=== PATIENT | male | born 1960 | race Caucasian/White ===

== ENCOUNTER → 2017-11-22 | Outpatient (CLI) | payer BC ==
[~2017-11-22] MED LIST: ASPI-516 CHEW; ASPIRIN EC 81 MG TABEC ONE; BACL20TA PO; DIGE1CAP2 PO; DULC100C PO; ECASA81 PO; HYDR-3366 PO; HYDR-3583 PO; KETOROLAC TROMETHAMINE 30 MG/ML (IVP) VIAL ONE; MAGN100T2 PO; MELO15TA20 PO; MULT-315 PO; WALKER WHEELS/F1 MIS
[2017-11-22 09:45] LABS: AUTOMATED NEUTROPHIL # 3.4 TH/MM3 (1.8-7.7); BASOPHIL # 0.1 TH/MM3 (0-0.2); EOSINOPHIL # 0.2 TH/MM3 (0-0.4); EOSINOPHIL % 3.2 % (0.0-4.0); HEMATOCRIT 39.3 % (39.0-51.0); HEMOGLOBIN 13.2 GM/DL (13.0-17.0); LYMPH % 17.8 % (9.0-44.0); MEAN CELL VOLUME 97.7 FL (80.0-100.0); MEAN CORPUSCULAR HEMOGLOBIN 32.7 PG (27.0-34.0); MEAN CORPUSCULAR HGB CONC 33.4 % (32.0-36.0); MEAN PLATELET VOLUME 7.6 FL (7.0-11.0); MONO % 14.4 % (0.0-8.0); MONOCYTE # 0.8 TH/MM3 (0-0.9); NEUT % 63.6 % (16.0-70.0); PLATELET COUNT 271 TH/MM3 (150-450); RED BLOOD COUNT 4.02 MIL/MM3 (4.50-5.90); RED CELL DISTRIBUTION WIDTH 14.4 % (11.6-17.2); WHITE BLOOD COUNT 5.4 TH/MM3 (4.0-11.0)
[2017-11-22 09:59] LABS: PROTHROMBIN TIME - PATIENT 10.2 SEC (9.8-11.6)
[2017-11-22 10:08] LABS: CREATININE 0.77 MG/DL (0.60-1.30)
[2017-11-22 10:20] LABS: BACTERIA, URINE OCC /hpf; BILIRUBIN, URINE NEG (NEG); BLOOD, URINE NEG (NEG); CALCIUM OXALATE CRYSTALS,URINE OCC /hpf; GLUCOSE,URINE NEG (NEG); KETONE, URINE NEG (NEG); MUCUS URINE MOD /lpf (OCC); NITRITE,URINE NEG (NEG); URINE COLOR YELLOW (YELLW/STRAW); URINE LEUKOCYTE ESTERASE NEG (NEG)
--- NOTE | 2017-11-22 10:24 | RADRPT ---
EXAM DATE: 11/22/2017 10:12 AM EDT AGE/SEX: 57 years / Male INDICATIONS: Evaluate for pneumonia, pneumothorax or communicable disease. Pre op left hip replaceme nt. CLINICAL DATA: This is the patient's initial encounter. Patient reports that signs and symptoms have been present for 1 day and indicates a pain score of 0/10. MEDICAL/SURGICAL HISTORY: None. None. COMPARISON: No prior exams available for comparison. FINDINGS: PA and lateral views of the chest demonstrate the lungs to be symmetrically aerated without evidence of mass, infiltrate or effusion. The cardiomediastinal contours are unremarkable. Osseous structures are intact. CONCLUSION: No acute cardiopulmonary findings identified. Electronically signed by: Andre Rodriguez MD 11/22/2017 10:22 AM EDT
== END ==
LOC: CPRE 09:00
PROVIDERS: ATTEND Orthopaedic Surgery Orthopaedic Trauma
DX: Z01.812 Encounter for preprocedural laboratory examination (principal); Z01.818 Encounter for other preprocedural examination; M79.609 Pain in unspecified limb; Z79.01 Long term (current) use of anticoagulants
CPT/HCPCS: 36415; 71046; 80048; 81001; 85025; 85610; 85730; 86850; 86900; 86901; J1885

== ENCOUNTER 2017-11-23 05:29 | Inpatient (IN) | payer BC ==
[~2017-11-23] VITALS: Ht 175.3 cm; Wt 75.8 kg
[~2017-11-23 05:29] MED LIST changes: -ASPI-516 CHEW; -ASPIRIN EC 81 MG TABEC ONE; -HYDR-3366 PO; -KETOROLAC TROMETHAMINE 30 MG/ML (IVP) VIAL ONE; -WALKER WHEELS/F1 MIS
[2017-11-23] MEDS ORDERED: VANCOMYCIN IV SCH (06:00)
[2017-11-23] MEDS ORDERED: ACETAMINOPHEN 1000 MG/100 ML 100 ML IV ONE (06:00)
[2017-11-23] MEDS ORDERED: LACTATED RINGER'S 1000 ML IV PRN (06:00)
[2017-11-23] MEDS ORDERED: ceFAZolin 2 GM PREMIX 50 ML IV SCH ×2 (06:00→14:00)
[2017-11-23] MEDS ORDERED: FAMOTIDINE 20 MG/2 ML VIAL IV PUSH ONE (06:00)
[2017-11-23] MEDS ORDERED: NS IV SCH (06:00)
[2017-11-23] MEDS ORDERED: BUPIVACAINE-EPI PF 0.25% INJ 20 ML, BUPIVACAINE LIPOSO PF 1.3% INJ 20 ML in SODIUM CHLO... P-ARTICULR SCH (06:00)
[2017-11-23] MEDS ORDERED: DEXAMETHASONE SOD PHOS 20 MG/5 ML VIAL IV PUSH ONE (06:00)
[2017-11-23] MEDS ORDERED: GABAPENTIN 300 MG CAP PO ONE (06:00)
[2017-11-23] MEDS ORDERED: SODIUM CHLORID 0.9% 500 ML IV PRN (06:00)
[2017-11-23] MEDS ORDERED: METOPROLOL TARTRATE 25 MG TAB PO PRN (06:00)
[2017-11-23] MEDS ORDERED: POVIDONE IODINE 5% (ANTISEPSIS KIT) 4 APPLICATIONS EACH NARE PRN (06:00)
[2017-11-23] MEDS ORDERED: CELECOXIB 200 MG CAP PO ONE (06:00)
[2017-11-23] MEDS ORDERED: TRANEXAMIC ACID INJ 1,140 MG in SODIUM CHLORIDE 0.9% INJ 100 ML IV SCH (06:00)
[2017-11-23] MEDS ORDERED: CHLORHEXIDINE GLUCONATE 4% SOLN 120 ML BTL TOPICAL SCH (06:00)
[2017-11-23] MEDS ORDERED: ONDANSETRON HCL 4 MG/2 ML VIAL IV PUSH ONE (06:00)
[2017-11-23] MEDS ORDERED: CHLORHEXIDINE GLUCONATE 2 % 1 PACK (2 CLOTHS) TOPICAL PRN (06:00)
[2017-11-23] MEDS ORDERED: GENTAMICIN SULFATE 80 MG/2 ML VIAL ONE (07:02)
[2017-11-23] MEDS ORDERED: VANCOMYCIN HCL 1000 MG VIAL ONE (08:13)
[2017-11-23] MEDS ORDERED: ACETAMINOPHEN/HYDROcodone 325 MG/10 MG TAB PO PRN (09:00)
[2017-11-23] MEDS ORDERED: ONDANSETRON ODT 4 MG TAB PO PRN (09:00)
[2017-11-23] MEDS ORDERED: Post-op Orders (for Pharmacy) XX ONE (09:00)
[2017-11-23] MEDS ORDERED: NALOXONE HCL 0.4 MG/ML AMP IV PUSH PRN (09:00)
[2017-11-23] MEDS ORDERED: LACTATED RINGER'S 1000 ML INJ 1,000 ML IV SCH (09:00)
[2017-11-23] MEDS ORDERED: MORPHINE SULFATE 4 MG/ML INJ IV PUSH PRN (09:00)
[2017-11-23] MEDS ORDERED: ACETAMINOPHEN/HYDROcodone 325 MG/7.5 MG TAB PO PRN (09:00)
[2017-11-23] MEDS ORDERED: ASPIRIN EC 81 MG TABEC PO SCH (09:00)
[2017-11-23] MEDS ORDERED: HYDR-3366 PO (09:04)
[2017-11-23] MEDS ORDERED: ASPI-516 CHEW (09:08)
[2017-11-23] MEDS ORDERED: DO NOT ADM ANY ANTICOAGULANT DRUGS PRN (09:30)
[2017-11-23] MEDS ORDERED: WALKER WHEELS/F1 MIS (09:32)
[2017-11-23] MEDS ORDERED: MIDAZOLAM HCL 2 MG/2 ML VIAL ONE (09:34)
--- NOTE | 2017-11-23 09:35 | HHI.FF ---
Face to Face Verification Diagnosis: (1) Status post total hip replacement, left Physical Therapy Gait training, Safety evaluation Hip: Total hip, Protocol: Left, Posterior hip precautions, Progress to weight bearing Right LE Weight Bearing: WB as tolerated Left LE Weight Bearing: WB as tolerated Nursing Dressing Changes: Daily dressing change (Beginning 11/29/2017. Remove silver dressing taking care to leave surgical tape intact over incision. Then dressed with dry Primapore dressing ensuring that tape of Primapore is not in contact with surgical tape. Then change Primapore daily or every other day. May begin some changes earlier if dressing becomes saturated or disheveled) I have seen patient Lucas Eldridge on 11/23/17. My clinical findings support the need for the requested home health care services because: Limited ability to care for self I certify that my clinical findings support that this patient is homebound because: Post-op weakness Brian Rider Jr. Nov 23, 2017 09:35
[2017-11-23] MEDS ORDERED: KETOROLAC TROMETHAMINE 30 MG/ML (IVP) VIAL IV PUSH SCH (10:00)
--- NOTE | 2017-11-23 10:48 | RADRPT ---
EXAM DATE: 11/23/2017 10:11 AM EDT AGE/SEX: 57 years / Male INDICATIONS: Post-op left hip replacement. CLINICAL DATA: This is the patient's initial encounter. Patient reports that signs and symptoms have been present for 1 day and indicates a pain score of 3/10. MEDICAL/SURGICAL HISTORY: None. None. COMPARISON: No prior exams available for comparison. FINDINGS: The patient is status post a total hip arthroplasty. Prosthesis is well-seated. Alignment is anatomic . A fracture is not appreciated. CONCLUSION: Anatomic alignment. Aung Rodriguez MD FACR Electronically signed by: Aung Rodriguez MD 11/23/2017 10:46 AM EDT
[2017-11-23] MEDS ORDERED: TRANEXAMIC ACID INJ 1,000 MG in SODIUM CHLORIDE 0.9% INJ 100 ML IV SCH (11:00)
--- NOTE | 2017-11-23 12:12 | RADRPT ---
EXAM DATE: 11/23/2017 11:56 AM EDT AGE/SEX: 57 years / Male INDICATIONS: Surgical replacement of left hip. CLINICAL DATA: This is the patient's initial encounter. Patient reports that signs and symptoms have been present for 1 day and indicates a pain score of Nonresponsive. MEDICAL/SURGICAL HISTORY: Non-responsive. Non-responsive. COMPARISON: No prior exams available for comparison. FINDINGS: 2 images from the OR have been submitted. There is a bipolar hip prosthesis seen in good position. CONCLUSION: Successful placement of a bipolar hip prosthesis. Electronically signed by: Boni Youssef MD 11/23/2017 12:10 PM EDT
[2017-11-23 13:42] VITALS: BP 142/80; PULSE 75; RESP 18; TEMP 97.8; O2SAT 97
--- NOTE | 2017-11-23 14:55 | PD.ORT.PN ---
Subjective Subjective Remarks Transferred to same-day surgery after left total hip arthroplasty due to femoral neck fracture Objective Vitals Vital Signs Date Time Temp Pulse Resp B/P (MAP) Pulse Ox O2 Delivery O2 Flow Rate FiO2 11/23/17 12:10 97.0 72 18 132/71 (91) 99 11/23/17 11:00 97.8 68 14 147/66 (93) 99 Room Air 11/23/17 10:30 97.8 58 12 120/65 (83) 99 Room Air 11/23/17 10:15 97.8 73 12 129/67 (87) 96 Room Air 11/23/17 10:00 97.8 62 12 103/55 (71) 93 Room Air 11/23/17 09:45 97.8 61 12 103/55 (71) 93 Nasal Cannula 2 11/23/17 09:30 97.8 60 12 103/55 (71) 93 Nasal Cannula 2 11/23/17 09:29 97.8 63 12 103/55 (71) 93 Nasal Cannula 2 11/23/17 06:27 98.9 59 18 156/87 (110) 100 I/O 11/22/17 11/22/17 11/22/17 11/23/17 11/23/17 11/23/17 06:59 14:59 22:59 06:59 14:59 22:59 Intake Total 1110 ml Output Total 200 ml Balance 910 ml Intake IV Total 110 ml Other 1000 ml Output Estimated Blood Loss 200 ml Imaging Last 24 hours Impressions Hip and Pelvis X-Ray 11/23/17 0900 Signed Impressions: CONCLUSION: Anatomic alignment. Aung Rodriguez MD FACR Hip X-Ray 11/23/17 0000 Signed Impressions: CONCLUSION: Successful placement of a bipolar hip prosthesis. Procedures Left anterior total hip arthroplasty Objective Remarks Left lower extremity: Clean dry dressings intact with mild swelling. Intact distal pulses and good capillary refills. Leg lengths equal Assessment & Plan Problem List: (1) Status post total hip replacement, left ICD Codes: Z96.642 - Presence of left artificial hip joint Status: Acute Assessment and Plan Physical therapy weightbearing as tolerated We will plan on discharge to home today if safe with physical therapy He will begin aspirin 81 mg twice daily beginning tomorrow He will maintain dressings until POD 6 then discontinue outer dressing ensuring that surgical tape remains over incision and then will be dressed with Primapore over surgical tape He will follow-up with Dr. Cheung or [place] in 2 weeks Home health care with DrTeresa's choice arranged Brian Rider Jr. Nov 23, 2017 14:55
[2017-11-23] MEDS ORDERED: BACLOFEN 20 MG TAB PO SCH (21:00)
[2017-11-24] MEDS ORDERED: DOCUSATE SODIUM 100 MG CAP PO SCH (21:00)
== END 2017-11-23 17:13 | disposition home or self-care (01) | DRG 496 ==
LOC: HSDI 05:29 → EDUNIT# 08:30
PROVIDERS: ADMIT Orthopaedic Surgery Orthopaedic Trauma; ATTEND Orthopaedic Surgery Orthopaedic Trauma
PROC: 0QPG04Z Removal of Internal Fixation Device from Right Tibia, Open Approach (ICD-10-PCS; principal; 2017-11-20)
PROC: 3E0102A Introduction of Anti-Infective Envelope into Subcutaneous Tissue, Open Approach (ICD-10-PCS; 2017-11-20)
DX: T84.622A Infection and inflammatory reaction due to internal fixation device of right tibia, initial encounter (principal); L02.415 Cutaneous abscess of right lower limb; I50.9 Heart failure, unspecified; B95.7 Other staphylococcus as the cause of diseases classified elsewhere; F17.200 Nicotine dependence, unspecified, uncomplicated; I25.2 Old myocardial infarction; J44.9 Chronic obstructive pulmonary disease, unspecified; I73.9 Peripheral vascular disease, unspecified; N18.9 Chronic kidney disease, unspecified; Z85.51 Personal history of malignant neoplasm of bladder; Z95.5 Presence of coronary angioplasty implant and graft; Z88.0 Allergy status to penicillin
CPT/HCPCS: 73501; 73502; 76000; C9290; J0131; J0690; J1100; J1580; J1885; J2250; J2405; J3010; J3370; J7120